=== PATIENT | female | born 2000 | race Caucasian/White ===

== ENCOUNTER 2019-09-12 23:35 | Emergency (ER) | payer OTHER ==
[~2019-09-12] VITALS: Ht 160 cm; Wt 56.7 kg
[~2019-09-12 23:35] MED LIST: ASA5UEC PO; BENADRYL25 MG PO; EPINEPHRIN0.3 MG/0.1 IM; MEDROL DOSPAK21 TAB PO; VENTOLIN HFA 1818 GM INH
[2019-09-13] MEDS ORDERED: VENTOLIN HFA 1818 GM INH (01:46)
[2019-09-13] MEDS ORDERED: PREDNISONE 20 M20 MG PO (01:46)
[2019-09-13 03:42] VITALS: BP 102/52
== END 2019-09-13 03:25 | disposition home or self-care (01) ==
LOC: ER 23:35
DX: J45.901 Unspecified asthma with (acute) exacerbation (principal); Z91.018 Allergy to other foods; Z91.013 Allergy to seafood; Z91.010 Allergy to peanuts

== ENCOUNTER 2019-09-28 17:22 | Emergency (ER) | payer OTHER ==
[~2019-09-28] VITALS: Ht 160 cm; Wt 45.8 kg
[~2019-09-28 17:22] MED LIST changes: +PREDNISONE 20 M20 MG PO
[2019-09-28] MEDS ORDERED: PROAIR HFA8.5 GM INH (17:29)
[2019-09-28 19:42] VITALS: BP 108/74
== END 2019-09-28 19:43 | disposition home or self-care (01) ==
LOC: ER 17:22
DX: J03.00 Acute streptococcal tonsillitis, unspecified (principal); J45.909 Unspecified asthma, uncomplicated; Z91.018 Allergy to other foods; Z91.010 Allergy to peanuts; Z91.013 Allergy to seafood; Z88.8 Allergy status to other drugs, medicaments and biological substances

== ENCOUNTER 2019-11-12 08:26 | Emergency (ER) | payer OTHER ==
[~2019-11-12] VITALS: Ht 157.5 cm; Wt 52.2 kg
[~2019-11-12 08:26] MED LIST changes: +PROAIR HFA8.5 GM INH
[2019-11-12] MEDS ORDERED: SYMBICORT160 MCG/4. INH (08:37)
[2019-11-12 08:59] LABS: ABSOLUTE NEUTROPHILS 5.3 thou/uL (1.4-8.2); BASOPHILS 0.3 % (0.0-2.0); HEMATOCRIT 41.9 % (37.0-47.0); HEMOGLOBIN 14.1 gm/dL (12.0-15.0); LYMPHOCYTES 23.9 % (24.0-44.0); MCH 31.4 pg (26.0-34.0); MCHC 33.7 g/dL (28.0-37.0); MCV 93.2 fL (80.0-100.0); MONOCYTES 6.3 % (1.0-8.0); PLATELET COUNT 272 thou/uL (150-400); POLYS 67.5 % (36.0-66.0); RBC 4.49 mil/uL (4.20-5.00); RDW 12.2 % (10.5-14.5); WBC 7.8 thou/uL (4.0-11.0)
[2019-11-12 09:02] LABS: CALCIUM 9.4 mg/dL (8.5-10.1); CREATININE 0.6 mg/dL (0.6-1.0)
[2019-11-12 09:09] LABS: ALBUMIN 4.1 g/dL (3.4-5.0); DIRECT BILIRUBIN 0.1 mg/dL (<0.1-0.2); MAGNESIUM 1.9 mg/dL (1.8-2.4); TOTAL BILIRUBIN 0.5 mg/dL (<0.1-1.0); TOTAL PROTEIN 7.7 g/dL (6.4-8.2)
[2019-11-12 09:15] LABS: URINE BILIRUBIN NEGATIVE (Negative); URINE BLOOD NEGATIVE (Negative); URINE CLARITY CLEAR; URINE COLOR YELLOW; URINE GLUCOSE-RANDOM* NEGATIVE (Negative); URINE KETONES 1+ (Negative); URINE NITRITE-REFLEX NEGATIVE (Negative); URINE PROTEIN (DIPSTICK) NEGATIVE (Negative); URINE SPECIFIC GRAVITY >= 1.030 (1.005-1.035); URINE UROBILINOGEN 0.2 E.U./dl (0.2-1.0)
[2019-11-12 09:17] LABS: URINE LEUKOCYTES-REFLEX 1+ (Negative)
[2019-11-12 09:25] LABS: SQUAMOUS >10 Many /LPF (0-3)
[2019-11-12 09:26] LABS: CASTS None Seen /LPF (None Seen); CRYSTALS None Seen /LPF (None Seen); URINE WBC-REFLEX 6-15 Few /HPF (0-5)
[2019-11-12 09:27] LABS: URINE RBC None Seen /HPF (0-2)
[2019-11-12] MEDS ORDERED: REGLAN 5 MG TAB5 MG PO (12:37)
[2019-11-12 12:57] VITALS: BP 102/58
== END 2019-11-12 13:07 | disposition home or self-care (01) ==
LOC: ER 08:26
PROVIDERS: Emergency Medicine
DX: O21.0 Mild hyperemesis gravidarum (principal); J45.909 Unspecified asthma, uncomplicated; R63.0 Anorexia; Z3A.01 Less than 8 weeks gestation of pregnancy; Z91.010 Allergy to peanuts; Z88.8 Allergy status to other drugs, medicaments and biological substances; Z91.018 Allergy to other foods

== ENCOUNTER → 2019-11-15 | Emergency (ER) | payer OTHER ==
[~2019-11-15] VITALS: Ht 157.5 cm; Wt 56.7 kg
[~2019-11-15] MED LIST changes: +REGLAN 5 MG TAB5 MG PO; +SYMBICORT160 MCG/4. INH
[2019-11-15 17:19] VITALS: BP 105/61
[2019-11-15 18:27] LABS: URINE BILIRUBIN NEGATIVE (Negative); URINE BLOOD NEGATIVE (Negative); URINE CLARITY SL CLOUDY; URINE COLOR YELLOW; URINE GLUCOSE-RANDOM* NEGATIVE (Negative); URINE KETONES TRACE (Negative); URINE LEUKOCYTES-REFLEX TRACE (Negative); URINE NITRITE-REFLEX NEGATIVE (Negative); URINE PROTEIN (DIPSTICK) NEGATIVE (Negative); URINE SPECIFIC GRAVITY >= 1.030 (1.005-1.035); URINE UROBILINOGEN 0.2 E.U./dl (0.2-1.0)
== END ==
LOC: ER 17:18
PROVIDERS: Emergency Medicine
DX: Z53.21 Procedure and treatment not carried out due to patient leaving prior to being seen by health care provider (principal)

== ENCOUNTER 2019-12-03 22:43 | Emergency (ER) | payer OTHER ==
[~2019-12-03] VITALS: Ht 157.5 cm; Wt 54.4 kg
[2019-12-03] MEDS ORDERED: PROAIR HFA8.5 GM INH (23:57)
[2019-12-03] MEDS ORDERED: PREDNISONE 20 M20 MG PO (23:57)
[2019-12-04 00:25] VITALS: BP 133/82
== END 2019-12-04 00:25 | disposition home or self-care (01) ==
LOC: ER 22:43
DX: J45.901 Unspecified asthma with (acute) exacerbation (principal); Z91.018 Allergy to other foods; Z91.013 Allergy to seafood; Z91.010 Allergy to peanuts

== ENCOUNTER 2019-12-30 18:37 | Emergency (ER) | payer OTHER ==
[~2019-12-30] VITALS: Ht 157.5 cm; Wt 59.0 kg
[2019-12-30 20:17] VITALS: BP 103/56
[2019-12-30] MEDS ORDERED: PREDNISONE50 MG PO (20:22)
[2019-12-30] MEDS ORDERED: PROAIR HFA8.5 GM INH (20:22)
== END 2019-12-30 20:27 | disposition home or self-care (01) ==
LOC: ER 18:37
DX: O99.512 Diseases of the respiratory system complicating pregnancy, second trimester (principal); J45.909 Unspecified asthma, uncomplicated; Z3A.14 14 weeks gestation of pregnancy; Z79.899 Other long term (current) drug therapy; Z91.018 Allergy to other foods; Z91.010 Allergy to peanuts; Z91.013 Allergy to seafood; Z88.8 Allergy status to other drugs, medicaments and biological substances

== ENCOUNTER 2020-02-09 19:25 | Emergency (ER) | payer OTHER ==
[~2020-02-09] VITALS: Ht 157.5 cm; Wt 56.7 kg
[~2020-02-09 19:25] MED LIST changes: +PREDNISONE50 MG PO
[2020-02-09] MEDS ORDERED: CETIRIZINE HCL10 MG PO (19:49)
[2020-02-09] MEDS ORDERED: SYMBICORT160 MCG/4. INH (19:50)
[2020-02-09] MEDS ORDERED: DULERA 200 MCG/13 GM INH (19:50)
[2020-02-09 20:45] VITALS: BP 106/72
== END 2020-02-09 20:45 | disposition home or self-care (01) ==
LOC: ER 19:25
DX: O9A.212 Injury, poisoning and certain other consequences of external causes complicating pregnancy, second trimester (principal); S93.402A Sprain of unspecified ligament of left ankle, initial encounter; J45.909 Unspecified asthma, uncomplicated; Z3A.20 20 weeks gestation of pregnancy; Z79.899 Other long term (current) drug therapy; Z91.013 Allergy to seafood; Z91.018 Allergy to other foods; Z91.010 Allergy to peanuts; W01.0XXA Fall on same level from slipping, tripping and stumbling without subsequent striking against object, initial encounter; Y93.89 Activity, other specified; Y92.89 Other specified places as the place of occurrence of the external cause; Y99.8 Other external cause status

== ENCOUNTER 2020-04-18 02:43 | Emergency (ER) | payer OTHER ==
[~2020-04-18] VITALS: Ht 157.5 cm; Wt 61.7 kg
[~2020-04-18 02:43] MED LIST changes: +CETIRIZINE HCL10 MG PO; +DULERA 200 MCG/13 GM INH
[2020-04-18 02:50] VITALS: BP 109/62
== END 2020-04-18 03:05 | disposition home or self-care (01) ==
LOC: ER 02:43
DX: O9A.213 Injury, poisoning and certain other consequences of external causes complicating pregnancy, third trimester (principal); S46.811A Strain of other muscles, fascia and tendons at shoulder and upper arm level, right arm, initial encounter; O99.513 Diseases of the respiratory system complicating pregnancy, third trimester; J45.909 Unspecified asthma, uncomplicated; Z3A.30 30 weeks gestation of pregnancy; Z79.899 Other long term (current) drug therapy; Z91.018 Allergy to other foods; Z91.010 Allergy to peanuts; Z91.013 Allergy to seafood; Z88.8 Allergy status to other drugs, medicaments and biological substances; X58.XXXA Exposure to other specified factors, initial encounter; Y93.89 Activity, other specified; Y92.89 Other specified places as the place of occurrence of the external cause; Y99.8 Other external cause status

== ENCOUNTER 2020-06-27 14:53 | Emergency (ER) | payer OTHER ==
[~2020-06-27] VITALS: Ht 157.5 cm; Wt 61.2 kg
[2020-06-27 15:28] LABS: URINE BILIRUBIN NEGATIVE (Negative); URINE BLOOD 3+ (Negative); URINE COLOR YELLOW; URINE GLUCOSE-RANDOM* NEGATIVE (Negative); URINE KETONES NEGATIVE (Negative); URINE NITRITE-REFLEX NEGATIVE (Negative); URINE PROTEIN (DIPSTICK) 1+ (Negative); URINE UROBILINOGEN 0.2 E.U./dl (0.2-1.0)
[2020-06-27 15:30] LABS: URINE CLARITY CLOUDY; URINE LEUKOCYTES-REFLEX 3+ (Negative)
[2020-06-27 15:41] LABS: BACTERIA-REFLEX >30 Many /HPF (None Seen); CASTS None Seen /LPF (None Seen); CRYSTALS None Seen /LPF (None Seen); SQUAMOUS 4-10 Moderate /LPF (0-3); URINE RBC >20 Many /HPF (0-2)
[2020-06-27] MEDS ORDERED: KEFLEX500 M1 PO (15:52)
[2020-06-27] MEDS ORDERED: PYRIDIUM200 MG PO (15:52)
[2020-06-27 16:17] VITALS: BP 104/59
== END 2020-06-27 16:17 | disposition home or self-care (01) ==
LOC: ER 14:53
PROVIDERS: Emergency Medicine
DX: O86.20 Urinary tract infection following delivery, unspecified (principal); O72.1 Other immediate postpartum hemorrhage; O99.53 Diseases of the respiratory system complicating the puerperium; J45.909 Unspecified asthma, uncomplicated; Z79.899 Other long term (current) drug therapy; Z91.018 Allergy to other foods; Z88.8 Allergy status to other drugs, medicaments and biological substances; Z91.010 Allergy to peanuts; Z91.013 Allergy to seafood

== ENCOUNTER 2020-08-29 00:56 | Emergency (ER) | payer OTHER ==
[~2020-08-29] VITALS: Ht 160 cm; Wt 64.4 kg
[~2020-08-29 00:56] MED LIST changes: +KEFLEX500 M1 PO; +PYRIDIUM200 MG PO
[2020-08-29] MEDS ORDERED: PROAIR HFA8.5 GM INH (01:37)
[2020-08-29] MEDS ORDERED: SYMBICORT160 MCG/4. INH (01:37)
[2020-08-29] MEDS ORDERED: ALBUTEROL2.5 MG/3 M INH (01:37)
[2020-08-29] MEDS ORDERED: TRIMETHOPRIM /P10 M1 OPHTHALMIC (01:37)
[2020-08-29 02:20] VITALS: BP 109/52
== END 2020-08-29 02:21 | disposition home or self-care (01) ==
LOC: ER 00:56
DX: J45.901 Unspecified asthma with (acute) exacerbation (principal); H10.9 Unspecified conjunctivitis; Z79.899 Other long term (current) drug therapy; Z91.018 Allergy to other foods; Z88.8 Allergy status to other drugs, medicaments and biological substances; Z91.010 Allergy to peanuts; Z91.013 Allergy to seafood; Z88.0 Allergy status to penicillin

== ENCOUNTER 2020-10-19 18:40 | Emergency (ER) | payer OTHER ==
[~2020-10-19] VITALS: Ht 160 cm; Wt 63.5 kg
[~2020-10-19 18:40] MED LIST changes: +ALBUTEROL2.5 MG/3 M INH; +TRIMETHOPRIM /P10 M1 OPHTHALMIC
[2020-10-19 18:49] VITALS: BP 106/52
[2020-10-19 19:50] LABS: URINE BILIRUBIN NEGATIVE (Negative); URINE BLOOD TRACE (Negative); URINE CLARITY CLEAR; URINE COLOR YELLOW; URINE GLUCOSE-RANDOM* NEGATIVE (Negative); URINE KETONES NEGATIVE (Negative); URINE LEUKOCYTES-REFLEX TRACE (Negative); URINE NITRITE-REFLEX NEGATIVE (Negative); URINE PROTEIN (DIPSTICK) NEGATIVE (Negative); URINE UROBILINOGEN 0.2 E.U./dl (0.2-1.0)
== END 2020-10-19 20:08 | disposition home or self-care (01) ==
LOC: ER 18:40
PROVIDERS: Emergency Medicine
DX: R53.1 Weakness (principal); R11.0 Nausea; Z53.21 Procedure and treatment not carried out due to patient leaving prior to being seen by health care provider

== ENCOUNTER 2020-11-03 00:02 | Emergency (ER) | payer OTHER ==
[~2020-11-03] VITALS: Ht 160 cm; Wt 68.0 kg
[2020-11-03] MEDS ORDERED: PREDNISONE 20 M20 M1 PO (00:51)
[2020-11-03] MEDS ORDERED: PROAIR HFA8.5 GM INH (00:51)
[2020-11-03 01:04] VITALS: BP 110/67
== END 2020-11-03 01:04 | disposition home or self-care (01) ==
LOC: ER 00:02
DX: J45.901 Unspecified asthma with (acute) exacerbation (principal); Z91.010 Allergy to peanuts; Z88.0 Allergy status to penicillin; Z88.8 Allergy status to other drugs, medicaments and biological substances

== ENCOUNTER 2020-11-04 03:27 | Emergency (ER) | payer OTHER ==
[~2020-11-04 03:27] MED LIST changes: +PREDNISONE 20 M20 M1 PO
[2020-11-04 05:12] LABS: ABSOLUTE NEUTROPHILS 3.1 thou/uL (1.4-8.2); BASOPHILS 0.3 % (0.0-2.0); EOSINOPHILS 2.6 % (0.0-3.0); HEMATOCRIT 37.3 % (37.0-47.0); MCHC 32.2 g/dL (28.0-37.0); MONOCYTES 7.8 % (1.0-8.0); PLATELET COUNT 272 thou/uL (150-400); POLYS 53.3 % (36.0-66.0); RBC 4.29 mil/uL (4.20-5.00); RDW 13.8 % (10.5-14.5); WBC 5.8 thou/uL (4.0-11.0)
[2020-11-04 05:22] LABS: CALCIUM 9.5 mg/dL (8.5-10.1); CREATININE 0.7 mg/dL (0.6-1.0)
[2020-11-04 06:28] VITALS: BP 110/68
--- NOTE | 2020-11-04 10:35 | EKG ---
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
== END 2020-11-04 06:30 | disposition home or self-care (01) ==
LOC: ER 03:27
PROVIDERS: Emergency Medicine
DX: R06.00 Dyspnea, unspecified (principal); M79.602 Pain in left arm; J45.909 Unspecified asthma, uncomplicated; Z88.8 Allergy status to other drugs, medicaments and biological substances; Z88.0 Allergy status to penicillin; Z91.010 Allergy to peanuts; Z91.013 Allergy to seafood; Z79.899 Other long term (current) drug therapy; W18.30XA Fall on same level, unspecified, initial encounter; Y93.89 Activity, other specified; Y92.89 Other specified places as the place of occurrence of the external cause; Y99.9 Unspecified external cause status

== ENCOUNTER 2021-02-14 23:30 | Emergency (ER) | payer OTHER ==
[~2021-02-14] VITALS: Ht 160 cm; Wt 68.0 kg
[2021-02-15 00:25] LABS: ABSOLUTE NEUTROPHILS 4.5 thou/uL (1.4-8.2); BASOPHILS 0.5 % (0.0-2.0); EOSINOPHILS 1.9 % (0.0-3.0); HEMOGLOBIN 12.5 gm/dL (12.0-15.0); LYMPHOCYTES 30.2 % (24.0-44.0); MCH 28.7 pg (26.0-34.0); MCHC 33.7 g/dL (28.0-37.0); MONOCYTES 5.3 % (1.0-8.0); PLATELET COUNT 276 thou/uL (150-400); POLYS 62.1 % (36.0-66.0); RBC 4.35 mil/uL (4.20-5.00); RDW 13.8 % (10.5-14.5); WBC 7.3 thou/uL (4.0-11.0)
[2021-02-15 00:31] LABS: ANION GAP 12 mmol/L (7-16); BUN 9 mg/dL (7-18); CALCIUM 8.8 mg/dL (8.5-10.1); CHLORIDE 105 mmol/L (98-107); CO2 25 mmol/L (21-32); CREATININE 0.8 mg/dL (0.6-1.0); POTASSIUM 4.2 mmol/L (3.5-5.1); SODIUM 142 mmol/L (136-145)
[2021-02-15 00:38] LABS: GLUCOSE 99 mg/dL (74-106)
[2021-02-15 00:41] LABS: ALBUMIN 3.9 g/dL (3.4-5.0); SGPT 37 U/L (30-65); TOTAL BILIRUBIN 0.3 mg/dL (0.2-1.0); TOTAL PROTEIN 7.5 g/dL (6.4-8.2); TROPONIN-I <0.06 ng/mL (<0.06)
[2021-02-15 00:53] LABS: SGOT 28 U/L (15-37)
[2021-02-15] MEDS ORDERED: MEDROLDOSEPACK PO (01:15)
[2021-02-15] MEDS ORDERED: FLEXERIL PO (01:15)
[2021-02-15 01:23] VITALS: BP 101/49
--- NOTE | 2021-02-15 09:06 | EKG ---
[place] [address] [address] [facility] [employer] [place] [address] ELECTROCARDIOGRAM REPORT Name: RADHA WALTON CLARISSA Room #: 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2000 Requested By: Aneesh Hoover Order Number: [id number] MD: Madi Booth Measurements Intervals [place] Rate: 75 P: -61 [place]: 143 QRS: 34 QRSD: 74 T: 22 QT: 373 QTc: 417 Interpretive Statements Sinus or ectopic atrial rhythm ST elev, probable normal early repol pattern Compared to ECG 11/04/2020 04:28:50 Ectopic atrial rhythm now present ST (T wave) deviation now present Sinus rhythm no longer present Short [place] interval no longer present Electronically Signed On 02-15-2021 9:06:05 CDT by Madi Booth [email or web address] <ELECTRONICALLY SIGNED> By: Madi Booth MD, [facility] 02/15/21 0906 [id number] 2343 Madi Booth MD, [facility] /EPI
== END 2021-02-15 01:28 | disposition home or self-care (01) ==
LOC: ER 23:30
PROVIDERS: Emergency Medicine
DX: R07.89 Other chest pain (principal); M54.16 Radiculopathy, lumbar region; J45.909 Unspecified asthma, uncomplicated; Z88.0 Allergy status to penicillin; Z91.013 Allergy to seafood; Z79.899 Other long term (current) drug therapy

== ENCOUNTER 2021-04-08 15:55 | Emergency (ER) | payer OTHER ==
[~2021-04-08] VITALS: Ht 160 cm; Wt 77.1 kg
[~2021-04-08 15:55] MED LIST changes: +FLEXERIL PO; +MEDROLDOSEPACK PO
[2021-04-08 16:00] VITALS: BP 96/58
[2021-04-08] MEDS ORDERED: MOBIC7.5 MG PO (17:46)
== END 2021-04-08 17:47 | disposition home or self-care (01) ==
LOC: ER 15:55
DX: S90.32XA Contusion of left foot, initial encounter (principal); J45.909 Unspecified asthma, uncomplicated; Z79.899 Other long term (current) drug therapy; Z91.018 Allergy to other foods; Z91.010 Allergy to peanuts; Z91.013 Allergy to seafood; W18.09XA Striking against other object with subsequent fall, initial encounter; Y93.89 Activity, other specified; Y92.89 Other specified places as the place of occurrence of the external cause; Y99.8 Other external cause status

== ENCOUNTER 2021-05-15 20:05 | Emergency (ER) | payer OTHER ==
[~2021-05-15] VITALS: Ht 160 cm; Wt 74.8 kg
[~2021-05-15 20:05] MED LIST changes: +MOBIC7.5 MG PO
[2021-05-15 20:28] LABS: URINE BILIRUBIN NEGATIVE (Negative); URINE BLOOD 3+ (Negative); URINE CLARITY SL CLOUDY; URINE COLOR YELLOW; URINE GLUCOSE-RANDOM* NEGATIVE (Negative); URINE KETONES NEGATIVE (Negative); URINE LEUKOCYTES-REFLEX NEGATIVE (Negative); URINE NITRITE-REFLEX NEGATIVE (Negative); URINE PROTEIN (DIPSTICK) NEGATIVE (Negative); URINE SPECIFIC GRAVITY >= 1.030 (1.005-1.035); URINE UROBILINOGEN 0.2 E.U./dl (0.2-1.0)
[2021-05-15 20:32] VITALS: BP 119/79
[2021-05-15 20:41] LABS: SQUAMOUS 0-3 Few /LPF (0-3); URINE RBC >20 Many /HPF (NONE SEEN); URINE WBC-REFLEX 0-5 Rare /HPF (0-5)
[2021-05-15 20:42] LABS: BACTERIA-REFLEX 1-9 Few /HPF (None Seen)
== END 2021-05-15 21:17 | disposition home or self-care (01) ==
LOC: ER 20:05
PROVIDERS: Physician Assistant
DX: N93.9 Abnormal uterine and vaginal bleeding, unspecified (principal); J45.909 Unspecified asthma, uncomplicated; Z79.899 Other long term (current) drug therapy; Z91.02 Food additives allergy status; Z88.0 Allergy status to penicillin; Z91.013 Allergy to seafood; Z91.018 Allergy to other foods

== ENCOUNTER 2021-05-31 00:55 | Emergency (ER) | payer OTHER ==
[~2021-05-31] VITALS: Ht 160 cm; Wt 74.8 kg
[2021-05-31 01:03] VITALS: BP 119/74
[2021-05-31 02:16] LABS: HEMATOCRIT 40.2 % (37.0-47.0); HEMOGLOBIN 13.4 gm/dL (12.0-15.0); MCH 29.2 pg (26.0-34.0); MCHC 33.3 g/dL (28.0-37.0); MCV 87.7 fL (80.0-100.0); RBC 4.58 mil/uL (4.20-5.00); RDW 13.5 % (10.5-14.5); WBC 8.2 thou/uL (4.0-11.0)
[2021-05-31 02:27] LABS: CALCIUM 8.2 mg/dL (8.5-10.1); CREATININE 0.7 mg/dL (0.6-1.0); POTASSIUM 3.7 mmol/L (3.5-5.1)
[2021-05-31 02:32] LABS: ALBUMIN 3.6 g/dL (3.4-5.0); MAGNESIUM 2.2 mg/dL (1.8-2.4); TOTAL BILIRUBIN 0.1 mg/dL (0.2-1.0); TOTAL PROTEIN 7.1 g/dL (6.4-8.2)
== END 2021-05-31 05:09 | disposition home or self-care (01) ==
LOC: ER 00:55
PROVIDERS: Emergency Medicine
DX: U07.1 COVID-19 (principal); R94.6 Abnormal results of thyroid function studies; R20.0 Anesthesia of skin; R20.2 Paresthesia of skin; J45.909 Unspecified asthma, uncomplicated; Z88.0 Allergy status to penicillin; Z88.8 Allergy status to other drugs, medicaments and biological substances; Z91.010 Allergy to peanuts; Z91.013 Allergy to seafood; Z91.02 Food additives allergy status

== ENCOUNTER 2021-07-24 01:32 | Emergency (ER) | payer OTHER ==
[~2021-07-24] VITALS: Ht 160 cm; Wt 65.8 kg
[2021-07-24 03:08] LABS: CALCIUM 8.6 mg/dL (8.5-10.1); CREATININE 0.6 mg/dL (0.6-1.0); POTASSIUM 3.6 mmol/L (3.5-5.1)
[2021-07-24 04:09] VITALS: BP 107/61
--- NOTE | 2021-07-25 07:11 | EKG ---
[place] [address] [address] [facility] [place] [address] ELECTROCARDIOGRAM REPORT Name: RADHA WALTON CLARISSA [facility] [id number] Admission: 07/24/21 Attend Phys: Discharge: 07/24/21 Date of : 89 Report #: [id number] [facility] ED Test Date: 2021-07-24 Test Time: 01:38:43 Pat Name: RADHA WALTON Department: Room: Gender: F Social Services Assistant: Nirav Dunn : 2000 Requested By: Brook Brewer Order Number: [id number] MD: Madi Booth Measurements Intervals [place] Rate: 85 P: -2 [place]: 152 QRS: 39 QRSD: 76 T: 7 QT: 370 QTc: 440 Interpretive Statements Sinus rhythm Compared to ECG 02/14/2021 23:43:23 Ectopic atrial rhythm no longer present ST (T wave) deviation no longer present Electronically Signed On 07-25-2021 7:10:48 CDT by Madi Booth [email or web address] <ELECTRONICALLY SIGNED> By: Madi Booth MD, [facility] 07/25/21 0710 0138 7 Madi Booth MD, FAC /EPI
== END 2021-07-24 04:10 | disposition home or self-care (01) ==
LOC: ER 01:32
PROVIDERS: Emergency Medicine
DX: R10.13 Epigastric pain (principal); J45.909 Unspecified asthma, uncomplicated; Z79.51 Long term (current) use of inhaled steroids; Z79.899 Other long term (current) drug therapy; Z88.6 Allergy status to analgesic agent; Z91.02 Food additives allergy status; Z91.010 Allergy to peanuts; Z88.0 Allergy status to penicillin; Z91.013 Allergy to seafood; Z91.018 Allergy to other foods

== ENCOUNTER 2021-07-25 23:11 | Emergency (ER) | payer OTHER ==
[~2021-07-25] VITALS: Ht 152.4 cm; Wt 73.1 kg
[2021-07-26 01:15] VITALS: BP 147/88
--- NOTE | 2021-07-28 07:28 | EKG ---
[address] [address] ELECTROCARDIOGRAM REPORT Name: RADHA WALTON CLARISSA Room #: [facility] Hemalatha#: [id number] Admission: 07/25/21 Attend Phys: Discharge: 07/26/21 Date of : [birth year] Report #: [id number] [facility] ED Test Date: 2021-07-25 Test Time: 23:24:58 Pat Name: RADHA WALTON Department: Room: Gender: F Director Of Career Services: SHANON MOHAMUD : 2000 Requested By: Brook Brewer Order Number: [id number] MD: Madi Booth Measurements Intervals [place] Rate: 92 P: 12 [place]: 150 QRS: 62 QRSD: 79 T: 39 QT: 351 QTc: 435 Interpretive Statements Sinus rhythm Compared to ECG 07/24/2021 01:38:43 No significant changes Electronically Signed On 07-28-2021 7:28:23 CDT by Madi Booth [email or web address] <ELECTRONICALLY SIGNED> By: Madi Booth MD, [facility] 07/28/21 0728 2324 2324 Madi Booth MD, FACC /EPI
== END 2021-07-26 01:15 | disposition home or self-care (01) ==
LOC: ER 23:11
DX: R07.89 Other chest pain (principal); R20.0 Anesthesia of skin; J45.909 Unspecified asthma, uncomplicated; Z79.51 Long term (current) use of inhaled steroids; Z91.010 Allergy to peanuts; Z88.0 Allergy status to penicillin; Z91.013 Allergy to seafood; Z91.018 Allergy to other foods

== ENCOUNTER 2021-08-08 05:23 | Emergency (ER) | payer OTHER ==
[~2021-08-08] VITALS: Ht 160 cm; Wt 68.0 kg
[2021-08-08 05:28] VITALS: BP 119/55
--- NOTE | 2021-08-08 07:08 | EKG ---
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 08/08/21 0708 0547 0547 Madi Booth MD, FACC /EPI
== END 2021-08-08 06:17 | disposition left against medical advice (07) ==
LOC: ER 05:23
DX: R20.2 Paresthesia of skin (principal); J45.909 Unspecified asthma, uncomplicated; Z79.51 Long term (current) use of inhaled steroids; Z79.899 Other long term (current) drug therapy; Z88.6 Allergy status to analgesic agent; Z88.3 Allergy status to other anti-infective agents; Z91.010 Allergy to peanuts; Z88.0 Allergy status to penicillin; Z91.013 Allergy to seafood; Z91.018 Allergy to other foods